=== PATIENT | male | born 1955 | race Caucasian/White ===

== ENCOUNTER 2017-07-08 21:01 | Emergency (ER) | payer BC ==
[2017-07-08 21:09] VITALS: BP 135/69
--- NOTE | 2017-07-08 21:12 | UC ---
UC General HPI - HPI Summary HPI Summary: 62 YEAR OLD MALE PRESENTS WITH COMPLAINS OF FATIGUE, BODY ACHES AND ABDOMINAL PAIN. HE IS CONCERNED ABOUT LYME DISEASE. - History of Current Complaint Chief Complaint: UCGeneralIllness Stated Complaint: TIREDNESS, ACHEY KNEES, AND STOMACHE CRAMPS Time Seen by Provider: 07/08/17 21:03 Hx Obtained From: Patient Onset/Duration: Gradual Onset Onset Severity: Moderate Current Severity: Moderate - Allergy/Home Medications Allergies/Adverse Reactions: Allergies Allergy/AdvReac Type Severity Reaction Status Date / Time No Known Allergies Allergy Verified 07/08/17 21:05 PMH/Surg Hx/FS Hx/Imm Hx Previously Healthy: Yes - Surgical History Surgical History: Yes Surgery Procedure, Year, and Place: t/a - Social History Alcohol Use: None Substance Use Type: None Smoking Status (MU): Never Smoked Tobacco Review of Systems Constitutional: Negative Skin: Negative Eyes: Negative ENT: Negative Respiratory: Negative Cardiovascular: Negative Gastrointestinal: Abdominal Pain Genitourinary: Negative Motor: Negative Neurovascular: Negative Musculoskeletal: Myalgia Neurological: Weakness Psychological: Negative All Other Systems Reviewed And Are Negative: Yes Physical Exam Triage Information Reviewed: Yes Vital Signs: Initial Vital Signs Temp 36.3 C 07/08/17 21:05 Pulse 52 07/08/17 21:05 Resp 16 07/08/17 21:05 BP 135/69 07/08/17 21:05 Pulse Ox 100 07/08/17 21:05 Vital Signs Reviewed: Yes Eye Exam: Normal ENT Exam: Normal Dental Exam: Normal Neck exam: Normal Neck: Positive: 1 Respiratory Exam: Normal Cardiovascular Exam: Normal Abdomen Description: Positive: Other: - CRAMPING Musculoskeletal Exam: Normal Neurological Exam: Normal Psychological Exam: Normal Skin Exam: Normal Course/Dx - Differential Dx - Multi-Symptom Provider Diagnoses: ABDOMINAL PAIN. ABDOMINAL CRAMPING. JOINT PAIN. BODY ACHES Discharge - Discharge Plan Condition: Stable Disposition: HOME Patient Education Materials: Weakness (ED), Musculoskeletal Pain (ED), Fatigue (ED) Referrals: Roseanne Bhatt [employer] [Primary Care Provider] -
[2017-07-09 14:44] LABS: Hematocrit 40 % (42-52); Hemoglobin 13.3 g/dl (14.0-18.0); Mean Corpuscular HGB Conc 33 g/dl (31-36); Mean Corpuscular Hemoglobin 30 pg (27-31); Mean Corpuscular Volume 91 fL (80-94); Mean Platelet Volume 11 um3 (7.4-10.4); Red Blood Count 4.45 10^6/ul (4.0-5.4); Red Cell Distribution Width 15 % (10.5-15)
[2017-07-09 14:57] LABS: BUN/Creatinine Ratio 23.3 (8-20); Calcium 9.3 mg/dL (8.6-10.3); EGFR African American 116.7 (>60); EGFR Non-African American 90.7 (>60); Globulin 2.3 g/dL (2-4); Potassium 4.3 mmol/L (3.5-5.0); Total Bilirubin 0.3 mg/dL (0.2-1.0); Total Protein 6.3 g/dL (6.4-8.9)
== END 2017-07-08 21:53 | disposition home or self-care (01) ==
LOC: UCEAST 21:01
DX: R10.84 Generalized abdominal pain (principal); M25.50 Pain in unspecified joint; M79.1 Myalgia; R53.83 Other fatigue
CPT/HCPCS: 36415; 80053; 85025; 86618; 87502; 99211; G0463

== ENCOUNTER 2019-03-10 17:21 | Emergency (ER) | payer BC ==
[2019-03-10 17:31] VITALS: BP 149/40
--- NOTE | 2019-03-10 17:48 | UC ---
Skin Complaint HPI - HPI Summary HPI Summary: 63-year-old male presents with complaints of a tender, swollen lesion to the right side of his neck. States he removed an engorged tick from the same area approximately 1 week previous and he thinks that there may have been some retained mouth parts after the removal. States area became tender and swollen yesterday. Denies fever, chills, flu-like illness, myalgias, joint pain or swelling. - History of Current Complaint Chief Complaint: UCSkin Time Seen by Provider: 03/10/19 17:46 Stated Complaint: POSS TICK BITE Hx Obtained From: Patient Pain Intensity: 3 - Allergy/Home Medications Allergies/Adverse Reactions: Allergies Allergy/AdvReac Type Severity Reaction Status Date / Time No Known Allergies Allergy Verified 03/10/19 17:32 PMH/Surg Hx/FS Hx/Imm Hx Previously Healthy: Yes - Denies significant PMH - Surgical History Surgical History: Yes Surgery Procedure, Year, and Place: t/a - Family History Known Family History: Positive: Non-Contributory - Social History Occupation: Employed Full-time Lives: With Family Alcohol Use: None Substance Use Type: None Smoking Status (MU): Never Smoked Tobacco Review of Systems All Other Systems Reviewed And Are Negative: Yes Constitutional: Negative: Fever, Chills Skin: Positive: Other - See HPI Respiratory: Positive: Negative Cardiovascular: Positive: Negative Gastrointestinal: Positive: Negative Genitourinary: Positive: Negative Musculoskeletal: Negative: Arthralgia, Myalgia Neurological: Positive: Negative Is Patient Immunocompromised?: No Physical Exam - Summary Physical Exam Summary: GENERAL APPEARANCE: Well developed, well nourished, alert and cooperative, and appears to be in no acute distress. CARDIAC: Normal S1 and S2. No S3, S4 or murmurs. Rhythm is regular. There is no peripheral edema, cyanosis or pallor. Extremities are warm and well perfused. Capillary refill is less than 2 seconds. Peripheral pulses intact. LUNGS: Clear to auscultation without rales, rhonchi, wheezing or diminished breath sounds. ABDOMEN: Positive bowel sounds. Soft, nondistended, nontender. No guarding or rebound. No masses or hepatosplenomegally. MUSKULOSKELETAL: ROM intact to all extremities. No joint erythema or tenderness. Normal muscular development. Normal gait. SKIN: Skin normal color, texture and turgor. 1 cm x 0.5 cm tender, raised lesion to the right anterior neck with central crusting. No fluctuance noted. 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 Triage Information Reviewed: Yes Vital Signs: Initial Vital Signs Temp 98.4 F 03/10/19 17:28 Pulse 62 03/10/19 17:28 Resp 18 03/10/19 17:28 BP 149/40 03/10/19 17:28 Pulse Ox 99 03/10/19 17:28 Vital Signs Reviewed: Yes Course/Dx - Course Course Of Treatment: 63-year-old male presents with complaints of a tender, swollen lesion to the right side of his neck. States he removed an engorged tick from the same area approximately 1 week previous and he thinks that there may have been some retained mouth parts after the removal. States area became tender and swollen yesterday. Denies fever, chills, flu-like illness, myalgias, joint pain or swelling. Afebrile. Hypertensive otherwise VSS. Patient had a 1 cm x 0.5 cm tender, raised lesion to the right anterior neck with central crusting. No fluctuance noted. 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 He appears to have localized infection at the site of the bite however with the history of the tick being engorged and the fact that his port wine stain makes evaluation for erythema migrans difficult will place him on doxycyline 100 mg BID x 2 weeks to cover for Lyme disease. He is to follow up with his primary care provider in 3 days if no improvement in symptoms. Anticipatory guidance and warning symptoms were reviewed with the patient. Verbalizes understanding and agrees with POC. - Differential Diagnoses - Skin Complaint Differential Diagnoses: Local Allergic Reaction, Tick Born Illness - Diagnoses Provider Diagnosis: Infected tick bite of neck Discharge - Sign-Out/Discharge Documenting (check all that apply): Patient Departure All imaging exams completed and their final reports reviewed: No Studies - Discharge Plan Condition: Stable Disposition: HOME Prescriptions: Doxycycline Hyclate 100 mg PO BID #28 tablet Patient Education Materials: Tick Bite (ED) Referrals: Roseanne Bhatt, [employer]TAIN [Primary Care Provider] - 3 Days Additional Instructions: You appear to have an infection of the skin at the site of your tick bite. We will treat you with an antibiotic for the infection but since the tick was engorged and your port wine stain makes assessment of skin for a bullseye rash difficult we will place you on a course that would treat for Lyme disease as well. Start doxycycline 100 mg twice a day for 2 weeks. Do not drink milk, eat milk products, or take any calcium supplements for at least 2 hours before or after taking the antibiotic as this can affect the absorption of the antibiotic. This antibiotic will also make you more sensitive to sunlight therefore you should avoid sun exposure while taking or use precautions including sunscreen, long sleeves, and hat. Apply a moist hot pack to the affected area at least 4 times a day. To try to avoid getting bitten by a tick, you can: * Wear shoes, long-sleeved shirts, and long pants when you go outside. Keep ticks away from your skin by tucking your pants into your socks. * Wear light colors so you can spot any ticks that get on your clothes. * Wear bug spray or cream that contains DEET. (Do not use DEET on babies younger than 2 months.) On your clothes and gear, you can use bug repellents that have a chemical called "permethrin." * Shower within 2 hours of being outdoors if you think you have been in an area where there are ticks. * Put dry clothes briefly (for about 4 minutes) in a dryer after being outdoors. * Check your clothes and body for ticks after being outdoors. Be sure to check your scalp, waist, armpits, groin, and backs of your knees. Check your children , too. Follow up with your primary care provider in 3 days if no improvement in symptoms. Seek immediate medical attention if you develop a fever greater than 100.5 F, have increased swelling, worsening pain, or any worsening of symptoms. - Billing Disposition and Condition Condition: STABLE Disposition: Home - Attestation Statements Provider Attestation: I was available for consult. This patient was seen by the MARISA. The patient was not presented to, seen by, or examined by me. -Chadd
== END 2019-03-10 18:20 | disposition home or self-care (01) ==
LOC: UCEAST 17:21
DX: T63.481A Toxic effect of venom of other arthropod, accidental (unintentional), initial encounter (principal); Y92.9 Unspecified place or not applicable
CPT/HCPCS: 99212; G0463

== ENCOUNTER 2019-04-27 09:50 | Emergency (ER) | payer BC ==
--- NOTE | 2019-04-27 10:08 | ED ---
HPI Chest Pain - HPI Summary HPI Summary: 64 [place] [facility] [place] of an episode of stabbing right- sided chest pain radiating to his right arm that lasted 10 minutes that started at 09:30 while sitting at the computer at work. As he was walking to his car to drive to the ED, the chest pain resolved. The patient does not have chest pain currently. The patient rates the pain 6/10 initially and 0/10 currently in severity. Symptoms aggravated by nothing. Symptoms alleviated by nothing. Patient denies nausea, vomiting, shortness of breath. Patient states that when he woke up this morning at 05:30, he felt right-sided, sharp chest muscle spasms coming every 30 seconds lasting 1 second which resolved before patient went to work. Hx PVCs. Not taking medication for diabetes, hypertension, hypercholesterolemia. Last stress test was 1-2 years ago. Fhx father had quadruple bypass surgery in his 60s. Denies smoking, alcohol, drugs. - History of Current Complaint Chief Complaint: EDChestPainROMI Time Seen by Provider: 04/27/19 10:00 Hx Obtained From: Patient Onset/Duration: Started Hours Ago, Resolved Initial Severity: Moderate - 6/10 Current Severity: None Pain Intensity: 0 Pain Scale Used: 0-10 Numeric Chest Pain Radiates: Yes Chest Pain Radiates To:: Arm - right Character: Sharp/Stabbing Aggravating Factor(s): Nothing Alleviating Factor(s): Nothing Associated Signs and Symptoms: Positive: Negative - nausea, vomiting, shortness of breath - Allergy/Home Medications Allergies/Adverse Reactions: Allergies Allergy/AdvReac Type Severity Reaction Status Date / Time No Known Allergies Allergy Verified 04/27/19 09:58 Home Medications: Home Medications NK [No Home Medications Reported] 04/27/19 [History Confirmed 04/27/19] PMH/Surg Hx/FS Hx/Imm Hx Endocrine/Hematology History: Denies: Hx Diabetes Cardiovascular History: Denies: Hx Hypercholesterolemia, Hx Hypertension, Hx Myocardial Infarction Sensory History: Reports: Hx Contacts or Glasses Opthamlomology History: Reports: Hx Contacts or Glasses - Surgical History Surgery Procedure, Year, and Place: t/a Infectious Disease History: No Infectious Disease History: Denies: Hx Clostridium Difficile, Hx Hepatitis, Hx Human Immunodeficiency Virus (HIV), Hx of Known/Suspected MRSA, Hx Shingles, Hx Tuberculosis, Hx Known/ Suspected VRE, Hx Known/Suspected VRSA, History Other Infectious Disease, Traveled Outside the [place] in Last 30 Days - Family History Family History: father had quadruple bypass in his 60s - Social History Alcohol Use: None Hx Substance Use: No Substance Use Type: Reports: None Hx Tobacco Use: No Smoking Status (MU): Never Smoked Tobacco Review of Systems Positive: Chest Pain Negative: Shortness Of Breath Negative: Vomiting, Nausea All Other Systems Reviewed And Are Negative: Yes Physical Exam - Summary Physical Exam Summary: VITAL SIGNS: Reviewed. GENERAL: Patient is a well-developed and nourished MALE who is lying comfortable in the stretcher. Patient is not in any acute respiratory distress. HEAD AND FACE: No signs of trauma. No ecchymosis, hematomas or skull depressions. No sinus tenderness. EYES: PERRLA, EOMI x 2, No injected conjunctiva, no nystagmus. EARS: Hearing grossly intact. Ear canals and tympanic membranes are within normal limits. MOUTH: Oropharynx within normal limits. NECK: Supple, trachea is midline, no adenopathy, no JVD, no carotid bruit, no c- spine tenderness, neck with full ROM. CHEST: Symmetric, no tenderness at palpation. LUNGS: Clear to auscultation bilaterally. No wheezing or crackles. CVS: Regular rate and rhythm, S1 and S2 present, no murmurs or gallops appreciated. ABDOMEN: Soft, non-tender. No signs of distention. No rebound, no guarding, and no masses palpated. Bowel sounds are normal. EXTREMITIES: FROM in all major joints, no edema, no cyanosis or clubbing. NEURO: Alert and oriented x 3. No acute neurological deficits. Speech is normal and follows commands. SKIN: Dry and warm. Triage Information Reviewed: Yes Vital Signs On Initial Exam: Initial Vitals Temp Pulse Resp BP Pulse Ox 97.4 F 51 16 166/74 100 04/27/19 09:56 04/27/19 09:56 04/27/19 09:56 04/27/19 09:56 04/27/19 09:56 Vital Signs Reviewed: Yes Diagnostics - Vital Signs Vital Signs Temp Pulse Resp BP Pulse Ox 04/27/19 09:56 97.4 F 51 16 166/74 100 - Laboratory Result Diagrams: 04/27/19 10:15 04/27/19 10:15 Lab Statement: Any lab studies that have been ordered have been reviewed, and results considered in the medical decision making process. - Radiology Chest x-ray Radiology Interpretation Completed By: Radiologist Summary of Radiographic Findings: NO ACTIVE CARDIOPULMONARY DISEASE. ED physician has reviewed this report. - EKG 0952 Cardiac Rate: Bradycardia - 56 BPM EKG Rhythm: Sinus Bradycardia Summary of EKG Findings: Sinus bradycardia [address] elevations. Hyperacute T waves Chest Pain Course/Dx - Course Assessment/Plan: 64 year old M presenting to [facility] complains of an episode of stabbing right-sided chest pain radiating to his right arm that lasted 10 minutes that started at 09:30 while sitting at the computer at work. As he was walking to his car to drive to the ED, the chest pain resolved. The patient does not have chest pain currently. The patient rates the pain 6/10 initially and 0/10 currently in severity. Symptoms aggravated by nothing. Symptoms alleviated by nothing. Patient denies nausea, vomiting, shortness of breath. Patient states that when he woke up this morning at 05:30, he felt right-sided, sharp chest muscle spasms coming every 30 seconds lasting 1 second which resolved before patient went to work. Hx PVCs. Not taking medication for diabetes, hypertension, hypercholesterolemia. Last stress test was 1-2 years ago. Fhx father had quadruple bypass surgery in his 60s. Denies smoking, alcohol , drugs. Blood work without any significant abnormality. Troponin 1 is 0.01. EKG shows a normal sinus rhythm without any significant elevations. Chest x- ray impression: No active cardiopulmonary disease. Second troponin is also 0.00. D-dimer came back slightly elevated however is under 500, therefore, I have no suspicion for PE. Patients Wells criteria for PE is equal to 0. And he is not hypoxic or tachycardic. Patient continues to be asymptomatic. Therefore, the patient will be discharged home with follow-up with PCP. Patient is hemodynamically stable alert and oriented 3. - Diagnoses Provider Diagnoses: Atypical chest pain Discharge - Sign-Out/Discharge Documenting (check all that apply): Patient Departure - Discharge Patient Received Moderate/Deep Sedation with Procedure: No - Discharge Plan Condition: Stable Disposition: HOME Patient Education Materials: Chest Pain (ED) Referrals: Roseanne Bhatt CAMP COOK [Primary Care Provider] - 3 Days Additional Instructions: Follow up with your primary care provider in 3 days. Return to the Emergency Department for new or worsening symptoms. - Billing Disposition and Condition Condition: STABLE Disposition: Home - Attestation Statements Document Initiated by Venkata: Yes Documenting Scribe: Anjelica Avila Provider For Whom Venkata is Documenting (Include Credential): Chin Crooks MD Scribe Attestation: IAnjelica, scribed for Chin Crooks MD on 04/27/19 at 1855. Scribe Documentation Reviewed: Yes Provider Attestation: The documentation as recorded by the scribeAnjelica accurately reflects the service I personally performed and the decisions made by me, Chin Crooks MD Status of Scribe Document: Viewed
[2019-04-27 10:27] LABS: ABS Basophils 0.1 10^3/ul (0-0.2); ABS Eosinophils 0.2 10^3/ul (0-0.6); ABS Lymphocytes 1.3 10^3/ul (1.0-4.8); ABS Monocytes 0.7 10^3/ul (0-0.8); ABS Neutrophils 4.6 10^3/ul (1.5-7.7); Eosinophil % 2.7 %; Hematocrit 40 % (42-52); Hemoglobin 13.6 g/dL (14.0-18.0); Lymphocyte % 19.2 %; Mean Corpuscular HGB Conc 34 g/dL (31-36); Mean Corpuscular Hemoglobin 31 pg (27-31); Mean Corpuscular Volume 91 fL (80-94); Mean Platelet Volume 9.3 fL (7.4-10.4); Nucleated Red Blood Cells % 0.1; Platelet Count 260 10^3/uL (150-450); Red Cell Distribution Width 14 % (10-15); White Blood Count 6.9 10^3/uL (3.5-10.8)
[2019-04-27 10:34] LABS: INR 1.05 (0.82-1.09)
[2019-04-27 10:44] LABS: Albumin 4.3 g/dL (3.2-5.2); Albumin/Globulin Ratio 1.7 (1-3); BUN/Creatinine Ratio 23.1 (8-20); Calcium 8.9 mg/dL (8.6-10.3); EGFR African American 102.1 (>60); EGFR Non-African American 84.4 (>60); Globulin 2.6 g/dL (2-4); Potassium 4.7 mmol/L (3.5-5.0); Total Bilirubin 0.4 mg/dL (0.2-1.0); Total Protein 6.9 g/dL (6.4-8.9); Troponin I 0.01 ng/mL (<0.04)
[2019-04-27 10:47] LABS: CKMB ng/mL 3.5 ng/mL (0.6-6.3)
[2019-04-27 11:16] LABS: TSH (Thyroid Stimulating Horm) 4.71 mcIU/mL (0.34-5.60)
[2019-04-27 15:01] VITALS: BP 158/83
== END 2019-04-27 15:00 | disposition home or self-care (01) ==
LOC: ED 09:50
DX: R07.89 Other chest pain (principal); E11.9 Type 2 diabetes mellitus without complications; I10 Essential (primary) hypertension; E78.00 Pure hypercholesterolemia, unspecified
CPT/HCPCS: 36415; 71045; 80053; 82550; 82553; 83880; 84443; 84484; 85025; 85379; 85610; 93005; 99283